=== PATIENT | female | born 1955 | race Caucasian/White ===

== ENCOUNTER → 2016-09-24 | Outpatient (CLI) | payer BC, MEDICARE ==
--- NOTE | 2016-09-25 12:30 | CARD ---
APPROVED REPORT EXAM: Two-dimensional and M-mode echocardiogram with Doppler and color Doppler. Other Information Quality : Average Rhythm : NSR INDICATION Cardiomyopathy Congestive Heart Failure 2D DIMENSIONS RVDd3.1 (2.9-3.5cm)Left Atrium(2D)3.4 (1.6-4.0cm) IVSd1.1 (0.7-1.1cm)Aortic Root(2D)2.7 (2.0-3.7cm) LVDd4.2 (3.9-5.9cm)LVOT Diameter2.2 (1.8-2.4cm) PWd1.1 (0.7-1.1cm)LVDs3.2 (2.5-4.0cm) FS (%) 23.1 %SV37.0 ml LVEF(%)52.7 (>50%) Aortic Valve AoV Peak Frankie.133.2cm/sAoV VTI17.2cm AO Peak GR.7.1mmHgLVOT Peak Frankie.107.8cm/s LVOT VTI 18.97cmAO Mean GR.3mmHg FRANTZ (VMAX)3.93xq6FUD (VTI)4.34cm2 AI P 1/2 [id number] Mitral Valve MV E Yfmdfnsz63.8cm/sMV DECEL [id number] MV A Cqirnhop24.5cm/sMV [id number] E/A Ratio0.7MV A [id number] MVA (PHT)3.00cm2 TDI E/Lateral E'17.2E/Medial E'9.0 Pulmonary Valve PV Peak Czhdeiql63.6cm/sPV Peak Grad.4mmHg RVOT VTI15.7cm Tricuspid Valve TR P. Jmaeupss135ly/sRAP [id number] TR Peak Gr.56tvXySUPP34ntDg LEFT VENTRICLE The left ventricle is normal size. There is normal left ventricular wall thickness. Left ventricle sy stolic function is normal. The Ejection Fraction is 50-55%. There is normal LV segmental wall motion. Tissue Doppler imaging reveals mild left ventricular diastolic dysfunction. There is no ventricular septal defect visualized. RIGHT VENTRICLE The right ventricle is normal size. The right ventricular systolic function is normal. There is a pos sible pacemaker/ICD lead seen in the RV/RA. ATRIA The left atrium size is normal. The right atrium size is normal. The interatrial septum is intact wit h no evidence for an atrial septal defect or patent foramen ovale as noted on 2-D or Doppler imaging. AORTIC VALVE The aortic valve is normal in structure and function. The aortic valve is trileaflet. Doppler and Col or Flow revealed mild aortic regurgitation. There is no significant aortic valvular stenosis. MITRAL VALVE The mitral valve is normal in structure and function. There is no mitral valve stenosis. Doppler and Color Flow revealed mild mitral regurgitation. TRICUSPID VALVE The tricuspid valve is normal in structure and function. Doppler and Color Flow revealed trace to mil d tricuspid regurgitation. The PA pressure was estimated at 23 mmHg. There is no tricuspid valve sten osis. PULMONIC VALVE The pulmonic valve is not well visualized. Doppler and Color Flow revealed no pulmonic valvular regur gitation. There is no pulmonic valvular stenosis. GREAT VESSELS The aortic root is normal in size. The ascending aorta is normal in size. The IVC is normal in size a nd collapses >50% with inspiration. PERICARDIAL EFFUSION There is no evidence of significant pericardial effusion. Critical Notification Critical Value: No <Conclusion> Left ventricle systolic function is normal. The Ejection Fraction is 50-55%. There is normal LV segmental wall motion. Tissue Doppler imaging reveals mild left ventricular diastolic dysfunction. There is a possible pacemaker/ICD lead seen in the RV/RA. Doppler and Color Flow revealed mild aortic regurgitation.
== END | disposition home or self-care (01) ==
LOC: ECHO 08:26
PROVIDERS: ATTEND Internal Medicine Cardiovascular Disease
DX: I08.1 Rheumatic disorders of both mitral and tricuspid valves (principal); I50.22 Chronic systolic (congestive) heart failure; I42.9 Cardiomyopathy, unspecified; Z95.810 Presence of automatic (implantable) cardiac defibrillator
CPT/HCPCS: 93306